=== PATIENT | female | born 1980 | race American Indian/Alaskan Native ===

== ENCOUNTER 2018-11-22 10:11 | Emergency (ER) | payer BC, OTHER ==
[2018-11-22] MEDS ORDERED: SUBLIMAZE IV ONE ×2 (10:39→13:00)
[2018-11-22] MEDS ORDERED: NACL 0.9% 500 ML 500 ML IV ONE (10:39)
--- NOTE | 2018-11-22 10:42 | Emergency Department Report ---
ED General Adult HPI - General Chief complaint: Fall Stated complaint: FALL Time Seen by Provider: 11/22/18 10:39 Source: patient, EMS (ems notes not available at time of chart dictation), RN notes reviewed Limitations: Physical Limitation - History of Present Illness Initial comments: This is a 38-year-old female. The patient is not known to this provider previously. She reports that she is not . Patient presents to this emergency room after a reported mechanical slip and fall while at work. Patient reports being in her usual state of health, when she states that her legs slipped from under her, she landed on her lower back, upper back, head and neck and bilateral shoulders. After the fall, she has pain in her left knee, right elbow, upper back, bilateral shoulders. She does not think that she lost consciousness. She denies focal extremity weakness. She makes no complaint of numbness. She reports that she is currently menstruating. No endorsement of vomiting blood, defecating blood or urinating blood. Her pain is sharp, increases with palpation, and it decreases with rest. -: Sudden Location: back, left, right, upper extremity, lower extremity Radiation: non-radiation Quality: aching Consistency: other Improves with: other Worsens with: other - Related Data Previous Rx's Medication Instructions Recorded Last Taken Type Acetaminophen [Non-Aspirin Extra 500 mg PO Q6HR PRN #30 tablet 11/22/18 Unknown Rx Strength] Ibuprofen [Motrin] 600 mg PO Q8H PRN #30 tablet 11/22/18 Unknown Rx methOCARBAMOL [Robaxin TAB] 1,500 mg PO TID PRN #30 tab 11/22/18 Unknown Rx Allergies Allergy/AdvReac Type Severity Reaction Status Date / Time codeine Allergy Itching Verified 11/22/18 10:26 ED Review of Systems ROS: Stated complaint: FALL Other details as noted in HPI Constitutional: denies: fever Eyes: denies: eye discharge ENT: denies: epistaxis Respiratory: denies: cough Cardiovascular: denies: chest pain Gastrointestinal: denies: abdominal pain Musculoskeletal: back pain, arthralgia, myalgia Skin: denies: lesions Neurological: denies: weakness, paresthesias, confusion Psychiatric: anxiety ED Past Medical Hx - Past Medical History Previous Medical History?: Yes Additional medical history: Chronic anemia - Surgical History Past Surgical History?: Yes Additional Surgical History: Tubal ligation - Social History Smoking Status: Never Smoker Substance Use Type: None - Medications Home Medications: Home Medications Medication Instructions Recorded Confirmed Last Taken Type Acetaminophen [Non-Aspirin Extra 500 mg PO Q6HR PRN #30 tablet 11/22/18 Unknown Rx Strength] Ibuprofen [Motrin] 600 mg PO Q8H PRN #30 tablet 11/22/18 Unknown Rx methOCARBAMOL [Robaxin TAB] 1,500 mg PO TID PRN #30 tab 11/22/18 Unknown Rx ED Physical Exam - General Limitations: Physical Limitation General appearance: alert, in no apparent distress - Head Head exam: Present: atraumatic, normocephalic - Eye Eye exam: Present: normal appearance, PERRL, EOMI. Absent: nystagmus - ENT ENT exam: Present: normal exam, normal orophraynx, mucous membranes moist, normal external ear exam - Neck Neck exam: Present: normal inspection, tenderness, other (there is midline and diffuse paracervical tenderness.). Absent: meningismus - Respiratory Respiratory exam: Present: normal lung sounds bilaterally. Absent: respiratory distress - Cardiovascular Cardiovascular Exam: Present: regular rate, normal rhythm, normal heart sounds. Absent: bradycardia, tachycardia, irregular rhythm, systolic murmur, diastolic murmur, rubs, gallop - GI/Abdominal GI/Abdominal exam: Present: soft. Absent: distended, tenderness, guarding, rebound, rigid, pulsatile mass - Extremities Exam Extremities exam: Present: normal inspection, full ROM, other (2+ pulses noted in the bilateral upper, lower extremities. Compartments soft. No long bony tenderness. The pelvis is stable.). Absent: pedal edema, joint swelling, calf tenderness - Back Exam Back exam: Present: normal inspection, tenderness, paraspinal tenderness, vertebral tenderness. Absent: full ROM (range of motion limited in the bila teral lower extremities, likely secondary to pain. Patient able to hold both lower extremities against gravity for 5 seconds.) - Neurological Exam Neurological exam: Present: alert, oriented X3, other (Extraocular movements intact. Tongue midline. No facial droop. Facial sensation intact to light touch in the V1, V2, V3 distribution bilaterally. 5 and 5 strength in 4 extremities.. Sensation is intact to light touch in 4 extremities.). Absent: motor sensory deficit (patient noted to be holding her side with phone with her bilateral upper extremities and typing on her cellular phone upon entering the room. Has 5 out of 5 strength upper and lower extremities, and sensation is intact to light touch and pinch in the upper, lower extremities. Downgoing plantar reflexes in the bilateral lower extremities.) - Psychiatric Psychiatric exam: Present: normal affect, normal mood - Skin Skin exam: Present: warm, dry, intact, normal color. Absent: rash ED Course Vital Signs 11/22/18 11/22/18 10:25 13:22 Temperature 99.2 F Pulse Rate 62 88 Respiratory 16 16 Rate Blood Pressure 152/92 128/87 [Right] O2 Sat by Pulse 99 98 Oximetry - Reevaluation(s) Reevaluation #1: 11/22/18 10:55 Differential diagnosis, including but not limited to: Sprain, strain, fracture, dislocation, mechanical fall Assessment and plan: 38-year-old female status post reported mechanical fall at work. On her initial assessment, she is afebrile with reassuring vital signs, speaking in full sentences, and is noted to be typing and playing on a cellular phone. The patient endorses diffuse back pain and tenderness during her examination. Uncertain if patient is exaggerating symptoms at this point in time. Recommended pain medication, which the patient declined, and recommended CT scan of the brain, cervical spine, thoracic spine and lumbar spine. Clinically doubt fracture, dislocation based off of the exam, and reported mechanism of injury, however, given the patient's endorsement of pain, and limitation of range of motion secondary to pain, we will obtain objective imag ing studies. The patient was counseled about the risks of ionizing radiation, including cancer, tumor, malignancy. The patient verbalizes understanding. However, since this is an acute traumatically related injury, the patient requires experience acquisition of diagnostics to exclude significant injury. No abdominal tenderness, rebound or guarding, or ecchymosis. No pulsatile abdominal mass. equal Pulses in the upper, lower extremities. Reevaluation #2: 11/22/18 13:25 He is much improved. Objective imaging studies unremarkable. Incidental right- sided lung nodule noted. Cervical collar was cleared. Repeat motor examination unremarkable. Patient resting comfortably, and states she feels improved. The patient is counseled to expect to be sore over the next few days. 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 Reevaluation #3: 11/22/18 15:24 Patient able to stand up, with a 2 person assist, and walk one to 2 steps. However, she then needs to sit down secondary to pain. Additional pain medication has been ordered. Contacted live in housekeeper, Blas, and requested evaluation for either rolling walker, and/or physical therapy. Went back and had extensive discussion with the patient regarding realistic expectations regarding improvement in symptoms, and the expected natural history of her injury. Reevaluation #4: 11/22/18 15:53 Patient able to ambulate with minimal assistance after hydromorphone administ ration. Currently, there is no rolling walker available in the emergency room. I discussed this with the patient and family/friends. The patient wants to go home, and she indicates that she is reliable to follow up with outpatient physical therapy, and her Worker's Compensation physician. I also discussed this with the live in housekeeper. ED Medical Decision Making - Lab Data Result diagrams: 11/22/18 10:51 11/22/18 10:51 Vital Signs 11/22/18 10:25 Temperature 99.2 F Pulse Rate 62 Respiratory 16 Rate Blood Pressure 152/92 [Right] O2 Sat by Pulse 99 Oximetry Lab Results 11/22/18 11/22/18 11/22/18 Range/Units 10:51 10:51 10:51 WBC 13.8 H (4.5-11.0) K/mm3 RBC 4.56 (3.65-5.03) M/mm3 Hgb 9.7 L (10.1-14.3) gm/dl Hct 30.3 (30.3-42.9) % MCV 66 L (79-97) fl MCH 21 L (28-32) pg MCHC 32 (30-34) % RDW 18.5 H (13.2-15.2) % Plt Count 248 (140-440) K/mm3 Lymph % (Auto) 7.8 L (13.4-35.0) % [place] % (Auto) 4.5 (0.0-7.3) % Eos % (Auto) 0.0 (0.0-4.3) % Baso % (Auto) 0.3 (0.0-1.8) % Lymph # 1.1 L (1.2-5.4) K/mm3 [place] # 0.6 (0.0-0.8) K/mm3 Eos # 0.0 (0.0-0.4) K/mm3 Baso # 0.0 (0.0-0.1) K/mm3 Seg Neutrophils % 87.4 H (40.0-70.0) % Seg Neutrophils # 12.0 H (1.8-7.7) K/mm3 PT 12.8 (12.2-14.9) Sec. INR 0.91 (0.87-1.13) Sodium 139 (137-145) mmol/L Potassium 4.0 (3.6-5.0) mmol/L Chloride 102.1 (98-107) mmol/L Carbon Dioxide 25 (22-30) mmol/L Anion Gap 16 mmol/L BUN 19 H (7-17) mg/dL Creatinine 0.8 (0.7-1.2) mg/dL Estimated GFR > 60 ml/min BUN/Creatinine Ratio 24 % Glucose 107 H (65-100) mg/dL Calcium 9.2 (8.4-10.2) mg/dL Magnesium (1.7-2.3) mg/dL Total Creatine Kinase (30-135) units/L HCG, Quant (0-4) mIU/mL Plasma/Serum Alcohol (0-0.07) % 11/22/18 11/22/18 11/22/18 Range/Units 10:51 10:51 10:51 WBC (4.5-11.0) K/mm3 RBC (3.65-5.03) M/mm3 Hgb (10.1-14.3) gm/dl Hct (30.3-42.9) % MCV (79-97) fl MCH (28-32) pg MCHC (30-34) % RDW (13.2-15.2) % Plt Count (140-440) K/mm3 Lymph % (Auto) (13.4-35.0) % [place] % (Auto) (0.0-7.3) % Eos % (Auto) (0.0-4.3) % Baso % (Auto) (0.0-1.8) % Lymph # (1.2-5.4) K/mm3 [place] # (0.0-0.8) K/mm3 Eos # (0.0-0.4) K/mm3 Baso # (0.0-0.1) K/mm3 Seg Neutrophils % (40.0-70.0) % Seg Neutrophils # (1.8-7.7) K/mm3 PT (12.2-14.9) Sec. INR (0.87-1.13) Sodium (137-145) mmol/L Potassium (3.6-5.0) mmol/L Chloride (98-107) mmol/L Carbon Dioxide (22-30) mmol/L Anion Gap mmol/L BUN (7-17) mg/dL Creatinine (0.7-1.2) mg/dL Estimated GFR ml/min BUN/Creatinine Ratio % Glucose (65-100) mg/dL Calcium (8.4-10.2) mg/dL Magnesium (1.7-2.3) mg/dL Total Creatine Kinase 94 (30-135) units/L HCG, Quant < 2 (0-4) mIU/mL Plasma/Serum Alcohol < 0.01 (0-0.07) % 11/22/18 Range/Units 10:51 WBC (4.5-11.0) K/mm3 RBC (3.65-5.03) M/mm3 Hgb (10.1-14.3) gm/dl Hct (30.3-42.9) % MCV (79-97) fl MCH (28-32) pg MCHC (30-34) % RDW (13.2-15.2) % Plt Count (140-440) K/mm3 Lymph % (Auto) (13.4-35.0) % [place] % (Auto) (0.0-7.3) % Eos % (Auto) (0.0-4.3) % Baso % (Auto) (0.0-1.8) % Lymph # (1.2-5.4) K/mm3 [place] # (0.0-0.8) K/mm3 Eos # (0.0-0.4) K/mm3 Baso # (0.0-0.1) K/mm3 Seg Neutrophils % (40.0-70.0) % Seg Neutrophils # (1.8-7.7) K/mm3 PT (12.2-14.9) Sec. INR (0.87-1.13) Sodium (137-145) mmol/L Potassium (3.6-5.0) mmol/L Chloride (98-107) mmol/L Carbon Dioxide (22-30) mmol/L Anion Gap mmol/L BUN (7-17) mg/dL Creatinine (0.7-1.2) mg/dL Estimated GFR ml/min BUN/Creatinine Ratio % Glucose (65-100) mg/dL Calcium (8.4-10.2) mg/dL Magnesium 1.90 (1.7-2.3) mg/dL Total Creatine Kinase (30-135) units/L HCG, Quant (0-4) mIU/mL Plasma/Serum Alcohol (0-0.07) % Vital Signs 11/22/18 11/22/18 10:25 13:22 Temperature 99.2 F Pulse Rate 62 88 Respiratory 16 16 Rate Blood Pressure 152/92 128/87 [Right] O2 Sat by Pulse 99 98 Oximetry - Radiology Data Radiology results: report reviewed, image reviewed CT scan of the brain, cervical spine, thoracic spine, lumbar spine negative for acute traumatic disease. X-ray of the chest, pelvis, elbow, knee negative for acute disease. Critical Care Time: Yes Critical care time in (mins) excluding proc time.: 35 Critical care attestation.: If time is entered above; I have spent that time in minutes in the direct care of this critically ill patient, excluding procedure time. ED Disposition Clinical Impression: Fall, Back pain Disposition: DC- TO HOME OR SELFCARE Is pt being admited?: No Does the pt Need Aspirin: No Condition: Stable Additional Instructions: As we discussed, pain typically gets worse before it gets better after mechanical fall. Rest, avoid heavy lifting and avoid strenuous physical activity. Please follow-up with your private physician, or your workplace designated Worker's Compensation physician for follow-up examination within the next 5-7 days. The patient should avoid heavy lifting and strenuous physical activities. CT scan of the thoracic spine, and other CT scan does not demonstrate traumatic disease that would require emergent intervention. However, incidental right- sided lung nodule was noted. This is likely a benign finding, however, it should be followed up by her primary care doctor within the next 2 months. Please have your primary care doctor contact the medical records department to obtain medical records, an imaging study results. Not following up for this as recommended may result in undiagnosed cancer, praveen or, malignancy, although this is quite unlikely. Please return to the emergency room right away with new pain, worsened pain, migration of pain, productive vomiting, change in mental status, confusion, inability to tolerate liquid feeds. Prescriptions: Ibuprofen [Motrin] 600 mg PO Q8H PRN #30 tablet PRN Reason: Pain Acetaminophen [Non-Aspirin Extra Strength] 500 mg PO Q6HR PRN #30 tablet PRN Reason: Pain , Severe (7-10) methOCARBAMOL [Robaxin TAB] 1,500 mg PO TID PRN #30 tab PRN Reason: Pain Referrals: SYED GUNDERSON MD [Staff Physician] - 3-5 Days [facility] [Provider Group] - 3-5 Days Forms: Work/School Release Form(ED)
[2018-11-22 11:11] LABS: Basophils % (Auto) 0.3 % (0.0-1.8); Hematocrit 30.3 % (30.3-42.9); Hemoglobin 9.7 gm/dl (10.1-14.3); Lymphocytes # (Auto) 1.1 K/mm3 (1.2-5.4); Lymphocytes % (Auto) 7.8 % (13.4-35.0); Mean Corpuscular HGB Conc 32 % (30-34); Monocytes # (Auto) 0.6 K/mm3 (0.0-0.8); Monocytes % (Auto) 4.5 % (0.0-7.3); Platelet Count 248 K/mm3 (140-440); Red Blood Count 4.56 M/mm3 (3.65-5.03); Red Cell Distribution Width 18.5 % (13.2-15.2)
[2018-11-22 11:15] LABS: Mean Corpuscular Volume 66 fl (79-97)
[2018-11-22 11:19] LABS: BUN/Creatinine Ratio 24; Blood Urea Nitrogen 19 mg/dL (7-17); Calcium 9.2 mg/dL (8.4-10.2); Hemolysis Index 1
[2018-11-22 11:24] LABS: INR 0.91 (0.87-1.13)
[2018-11-22] MEDS ORDERED: XYLOCAINE CARDIAC IV ONE ×2 (11:26→13:00)
--- NOTE | 2018-11-22 12:04 | Cat Scan Report ---
PROCEDURE: CT HEAD/BRAIN WO CON TECHNIQUE: A noncontrast CT of the head was performed. HISTORY: Trauma COMPARISON: None FINDINGS: There is no acute intracranial hemorrhage. There is no brain edema, mass effect or midline shift. Ventricular size is appropriate for brain volume. There is no abnormal extra-axial fluid collections. There is no skull fracture seen. The visualized paranasal sinuses are clear. IMPRESSION: There is no acute intracranial abnormality seen. This document is electronically signed by Audra Campos MD., November 22 2018 01:02:44 PM ET
--- NOTE | 2018-11-22 12:15 | Cat Scan Report ---
PROCEDURE: CT LUMBAR SPINE WO CON TECHNIQUE: CT of the lumbar spine performed. Axial images and coronal and sagittal reformatted images were obtained. HISTORY: Trauma COMPARISON: None FINDINGS: There is no acute fracture identified. Vertebral body heights and alignment are maintained. There is a minimal posterior disc bulge at L5-S1. There is no significant spinal stenosis or neurofor aminal stenosis. IMPRESSION: No acute fracture, subluxation or spinal stenosis. This document is electronically signed by Audra Campos MD., November 22 2018 01:13:06 PM ET
[2018-11-22] MEDS ORDERED: TORADOL IV ONE (12:19)
--- NOTE | 2018-11-22 12:26 | XRay Report ---
PROCEDURE: XR KNEE 3V LT TECHNIQUE: 3 views left knee HISTORY: Trauma pain COMPARISONS: None FINDINGS: Alignment normal. Joint spaces normal. No effusion. No fracture. IMPRESSION: No acute abnormality.. This document is electronically signed by Dex Sousa MD., November 22 2018 01:23:58 PM ET
--- NOTE | 2018-11-22 12:26 | Cat Scan Report ---
PROCEDURE: CT CERVICAL SPINE WO CON TECHNIQUE: Computerized tomography of the cervical spine was performed from the skull base to T1 wit hout contrast material. CT DOSE LENGTH PRODUCT: 677 mGycm HISTORY: Trauma COMPARISONS: None . FINDINGS: There is no compression fracture or spondylolisthesis. No significant degenerative change is present. The visualized prevertebral soft tissues are negative. No significant disc narrowing. No evidence of neural foraminal stenosis. IMPRESSION: No acute skeletal pathology in the cervical spine This document is electronically signed by Cal Padron MD., November 22 2018 01:24:43 PM ET
--- NOTE | 2018-11-22 12:26 | XRay Report ---
PROCEDURE: XR PELVIS 1-2V TECHNIQUE: AP pelvis HISTORY: Trauma leg pain COMPARISONS: None FINDINGS: SI joints and symphysis pubis normal alignment. Bony pelvis is intact. Hip joint space normal. Proxim al femurs normal. No acute soft tissue abnormality. IMPRESSION: No acute abnormality.. This document is electronically signed by Dex Sousa MD., November 22 2018 01:24:50 PM ET
--- NOTE | 2018-11-22 12:35 | Cat Scan Report ---
PROCEDURE: CT THORACIC SPINE WO CON TECHNIQUE: CT examination of the thoracic spine without IV contrast HISTORY: Trauma COMPARISONS: None FINDINGS: Vertebral Compression fracture: None Acute Fracture: None Spondylolisthesis: None Disk flattening: None Degenerative change: Not significant Included posterior ribs: Intact Focal osseous lesion: None Nonspecific densely calcified mass measures 4.8 cm in the right posterior hilum. This may be kris en largement with granulomatous calcification. Small benign calcified granulomas in right lung. IMPRESSION: No acute skeletal pathology Densely calcified right posterior hilar mass may reflect kris enlargement with granulomas calcificat ion. Benign calcified granuloma in right lung This document is electronically signed by Cal Padron MD., November 22 2018 01:33:16 PM ET
--- NOTE | 2018-11-22 12:41 | XRay Report ---
PROCEDURE: XR ELBOW 3+V RT TECHNIQUE: 3 views of the right elbow. HISTORY: Trauma pain COMPARISON: None FINDINGS: There is no acute fracture seen. There is no dislocation seen. There is no abnormal elbow fat pad elevation to indicate joint effusion/hemarthrosis. There is no focal osseous lesion identified. IMPRESSION: There is no acute abnormality identified. This document is electronically signed by Audra Campos MD., November 22 2018 01:39:50 PM ET
--- NOTE | 2018-11-22 12:42 | XRay Report ---
PROCEDURE: XR CHEST 1V AP TECHNIQUE: Chest, AP supine HISTORY: Trauma COMPARISON: None FINDINGS: The heart size is normal. There is no pulmonary vascular congestion seen. Mediastinal contours are normal. Lungs are clear. There is no pleural effusion seen. There is no pneumothorax seen. IMPRESSION: No acute abnormality identified. This document is electronically signed by Audra Campos MD., November 22 2018 01:40:20 PM ET
[2018-11-22] MEDS ORDERED: NACL 0.9% IV ONE (13:00)
[2018-11-22 13:23] VITALS: BP 128/87
[2018-11-22] MEDS ORDERED: DILAUDID IV ONE (15:13)
== END 2018-11-22 17:07 | disposition home or self-care (01) ==
LOC: ED 10:11
DX: M25.562 Pain in left knee (principal); M25.521 Pain in right elbow; M54.6 Pain in thoracic spine; M54.5 Low back pain; M25.512 Pain in left shoulder; M25.511 Pain in right shoulder; Z98.51 Tubal ligation status; Z88.6 Allergy status to analgesic agent; W18.30XA Fall on same level, unspecified, initial encounter; Y99.0 Civilian activity done for income or pay; Y92.69 Other specified industrial and construction area as the place of occurrence of the external cause; Y99.8 Other external cause status
CPT/HCPCS: 36415; 70450; 71045; 72125; 72128; 72131; 72170; 73080; 73562; 80048; 82550; 83735; 84702; 85025; 85610; 96374; 96375; 99285; G0480; J1170; J1885; J2001; J3010; J7040; 80320; 99291